=== PATIENT | male | born 1980 | race Caucasian/White ===

== ENCOUNTER 2018-09-21 18:55 | Emergency (ER) | payer OTHER ==
[~2018-09-21 18:55] MED LIST: ISOVUE-370 76%-LOCM 1 ML ONE
--- NOTE | 2018-09-21 21:20 | CT ---
CT FACIAL BONES PERFORMED WITH INTRAVENOUS CONTRAST ENHANCEMENT: 09/21/18 HISTORY: Facial pain and swelling. The visualized brain parenchyma appears unremarkable. The tonsil region and parapharyngeal spaces all appear clear. Epiglottis is normal in appearance. Bilateral jugular chain nodes are felt to most lik aylin be reactive. Mastoid air cells are clear. There is mucosal disease in both maxillary sinus with some more pronounc ed changes and retention cyst within the left maxillary sinus. Ethmoid, sphenoid and frontal sinuses are all relatively clear. Minimal mucosal change in the anterior ethmoid air cells on the left. There is evidence of some dental disease involving the a right sided maxillary incisor with disruptio n of the cortex anteriorly associated with this. This appears to be in the area of some right sided f acial swelling. No abscess seen. IMPRESSION: 1. Bilateral maxillary sinus mucosal disease. 2. Evidence of dental disease with disruption of the cortex related to the right sided maxillary incisor with some adjacent soft tissue swelling. POS: [facility]
== END 2018-09-21 21:42 | disposition home or self-care (01) ==
LOC: ERS 18:55
DX: L03.211 Cellulitis of face (principal); K00.6 Disturbances in tooth eruption; Z79.899 Other long term (current) drug therapy
CPT/HCPCS: 70487; Q9966